=== PATIENT | female | born 1955 | race American Indian/Alaskan Native ===

== ENCOUNTER 2016-07-18 17:16 | Emergency (ER) | payer OTHER ==
--- NOTE | 2016-07-18 18:24 | Emergency Department Report ---
ED Shortness of Breath HPI - General Chief Complaint: Dyspnea/Respdistress Stated Complaint: SOB Time Seen by Provider: 07/18/16 18:12 Source: patient Mode of arrival: Ambulatory Limitations: No Limitations - History of Present Illness Initial Comments: 60-year-old female with history of hypertension, diabetes, CHF status post ICD placement presented today because of shortness of breath on exertion 1 week. Patient states otherwise been swelling more over this last week and she starting at more more short of breath. She has associated chest pain, palpitations, nausea, vomiting, diarrhea, abdominal pain. Has been taking Lasix 40 mg by mouth once a day as prescribed. Has been out of the hospital for over 2 years. She has a nonproductive cough. - Related Data Previous Rx's Medication Instructions Recorded Last Taken Type Digoxin [Lanoxin] 0.125 mg PO DAILY@1700 #30 tablet 09/10/13 Unknown Rx Furosemide [Lasix] 40 mg PO DAILY #30 tablet 09/10/13 Unknown Rx Losartan [Cozaar] 12.5 mg PO QDAY #30 tablet 09/10/13 Unknown Rx Metoprolol [Lopressor TAB] 25 mg PO BID #60 tablet 09/10/13 Unknown Rx Simvastatin [Zocor TAB] 20 mg PO QHS #30 tablet 09/10/13 Unknown Rx Spironolactone [Aldactone] 25 mg PO QDAY #30 tablet 09/10/13 Unknown Rx glyBURIDE [Diabeta] 5 mg PO DAILY #30 tablet 09/10/13 Unknown Rx Allergies Allergy/AdvReac Type Severity Reaction Status Date / Time lisinopril Allergy Persistent Verified 07/18/16 17:28 coughimg ED Review of Systems ROS: Stated complaint: SOB Other details as noted in HPI Comment: All other systems reviewed and negative Respiratory: cough, shortness of breath, SOB with exertion Cardiovascular: denies: chest pain, palpitations Gastrointestinal: denies: abdominal pain, vomiting Genitourinary: denies: urgency, dysuria Psychiatric: denies: anxiety ED Past Medical Hx - Past Medical History Hx Hypertension: Yes Hx Congestive Heart Failure: Yes Hx Diabetes: Yes Additional medical history: enlarged heart - Surgical History Hx Internal Defibrillator: Yes Additional Surgical History: partial hysterectomy - Social History Smoking Status: Never Smoker Substance Use Type: None - Medications Home Medications: Home Medications Medication Instructions Recorded Confirmed Last Taken Type Digoxin [Lanoxin] 0.125 mg PO DAILY@1700 #30 tablet 09/10/13 Unknown Rx Furosemide [Lasix] 40 mg PO DAILY #30 tablet 09/10/13 Unknown Rx Losartan [Cozaar] 12.5 mg PO QDAY #30 tablet 09/10/13 Unknown Rx Metoprolol [Lopressor TAB] 25 mg PO BID #60 tablet 09/10/13 Unknown Rx Simvastatin [Zocor TAB] 20 mg PO QHS #30 tablet 09/10/13 Unknown Rx Spironolactone [Aldactone] 25 mg PO QDAY #30 tablet 09/10/13 Unknown Rx glyBURIDE [Diabeta] 5 mg PO DAILY #30 tablet 09/10/13 Unknown Rx ED Physical Exam - General Limitations: No Limitations General appearance: alert, in no apparent distress - Head Head exam: Present: atraumatic - ENT ENT exam: Present: normal exam - Respiratory Respiratory exam: Present: other (mild crackles at bilateral lung bases, mild, mild respiratory distress, able to speak full sentences between breaths) - Cardiovascular Cardiovascular Exam: Present: normal rhythm, tachycardia - GI/Abdominal GI/Abdominal exam: Present: soft. Absent: distended, tenderness - Extremities Exam Extremities exam: Present: other (3+ pitting edema in bilateral lower legs going up to the knees) - Neurological Exam Neurological exam: Present: alert, oriented X3 - Psychiatric Psychiatric exam: Present: normal affect - Skin Skin exam: Present: intact ED Course Vital Signs 07/18/16 07/18/16 07/18/16 17:20 18:05 18:06 Temperature 98.3 F Pulse Rate 119 H Respiratory 24 Rate Blood Pressure 129/93 Blood Pressure [Right] O2 Sat by Pulse 98 100 99 Oximetry 07/18/16 07/18/16 07/18/16 18:07 18:08 18:10 Temperature Pulse Rate 108 H 109 H 106 H Respiratory 15 25 H 25 H Rate Blood Pressure 122/91 122/91 122/91 Blood Pressure [Right] O2 Sat by Pulse 98 100 98 Oximetry 07/18/16 07/18/16 07/18/16 18:12 18:14 18:15 Temperature Pulse Rate 107 H 109 H 112 H Respiratory 16 16 14 Rate Blood Pressure 122/91 122/91 131/96 Blood Pressure [Right] O2 Sat by Pulse 100 100 99 Oximetry 07/18/16 07/18/16 07/18/16 19:45 23:35 23:36 Temperature 98.3 F Pulse Rate 99 H 97 H Respiratory 20 16 16 Rate Blood Pressure Blood Pressure 119/90 126/88 [Right] O2 Sat by Pulse 99 98 98 Oximetry - Reevaluation(s) Reevaluation #1: 07/18/16 23:22 Patient reassessed and is feeling significantly better. Has no respiratory distress and lungs sound clear. Has urinated multiple times after receiving a dose of IV Lasix. Patient's vitals here show that she has a little bit tachycardic between 100-110, I looked through patient's medications and she is usually on metoprolol which she has not taken today. Splint to the patient my concern about tachycardia however this is likely due to beta kit withdrawal. Patient is well appearing and has a doctor's appointment on Sunday with her primary doctor. We'll discharge home with primary care follow-up. ED Medical Decision Making - Lab Data Result diagrams: 07/18/16 18:11 07/18/16 18:11 - Medical Decision Making EKG shows sinus tachycardia at 104 bpm, no ST-T changes, narrow QRS Labs, chest x-ray ordered Likely a CHF exacerbation Critical care attestation.: If time is entered above; I have spent that time in minutes in the direct care of this critically ill patient, excluding procedure time. ED Disposition Clinical Impression: CHF exacerbation Qualifiers: Congestive heart failure type: unspecified congestive heart failure type Qualified Code(s): I50.9 - Heart failure, unspecified Disposition: DISCHARGED TO HOME OR SELFCARE Is pt being admited?: No Does the pt Need Aspirin: No Condition: Stable Additional Instructions: Please follow up with your primary care doctor on your appointment on Sunday. Return to the emergency room if he had significant difficulty breathing, chest pain, palpitations or any new symptoms. Referrals: PRIMARY CARE, [Primary Care Provider] - 3-5 Days
[2016-07-18 18:30] LABS: Hematocrit 35.9 % (30.3-42.9); Hemoglobin 11.3 gm/dl (10.1-14.3); Mean Corpuscular HGB Conc 32 % (30-34); Mean Corpuscular Volume 71 fl (79-97); Platelet Count 261 K/mm3 (140-440); Red Blood Count 5.03 M/mm3 (3.65-5.03); Red Cell Distribution Width 15.1 % (13.2-15.2); White Blood Count 5.9 K/mm3 (4.5-11.0)
[2016-07-18 18:36] LABS: Mean Corpuscular Hemoglobin 23 pg (28-32)
[2016-07-18 18:53] LABS: Anion Gap 17 mmol/L; BUN/Creatinine Ratio 32.85; Blood Urea Nitrogen 23 mg/dL (7-17); Calcium 8.9 mg/dL (8.4-10.2); Carbon Dioxide 26 mmol/L (22-30); Chloride 101.3 mmol/L (98-107); Glucose 226 mg/dL (65-100); Potassium 4.2 mmol/L (3.6-5.0); Sodium 140 mmol/L (137-145)
[2016-07-18] MEDS ORDERED: LASIX IV ONE (20:49)
--- NOTE | 2016-07-18 22:28 | Admit Criteria Form ---
Admission Criteria Documentation: HEART FAILURE: COMMON COMPLICATIONS Clinical Indications for Inpatient Care (Place 'X' for any and all applicable criteria): Ongoing inpatient care may be indicated for heart failure with ANY ONE of the following (1)(2)(3)(4)(5): [ ]I. Ongoing need for care for primary condition requiring frequent therapy adjustments because of changes in cardiac function (eg, drug dosage changes for drugs that are renally metabolized) [ ]II. New-onset heart failure [ ]III. Heart failure with decreased urine output not responsive to attempts to optimize volume status [ ]IV. Acute cardiac ischemia causing or associated with failure [X ]V. Complications of heart failure, including ANY ONE of the following: [ ]a) Pericardial effusion [ ]b) Symptomatic pleural effusion [ ]c) O2 saturation <90% or PO2 < 60 mm Hg (8.0 kPa) on room air or require baseline supplemental O2 [ ]d) Tachypnea [ X]e) Dyspnea [ ]f) Syncope [ ]g) Change in mental status [ ]h) Acute renal insufficiency that is severe (reduction of more than 50% in estimated glomerular filtration rate from baseline) or progressive reduction of more than 25% in estimated glomerular filtration rate from baseline, with creatinine continuing to rise) [ ]i) Hemodynamic instability [ ]j) Anasarca [ ]k) Clinically significant metabolic abnormalities due to heart failure (eg, new-onset metabolic acidosis) Extended stay beyond goal length of stay for primary condition may be needed until ALL of the following are present(1)(3): [ ]a) Stable and effective diuretic regimen established (or patient on stable dialysis regimen if in chronic renal failure) [ ]b) Breathing comfortably at rest [ ]c) Saturation of arterial oxygen greater than 90% or at acceptable baseline [ ]d) Pulmonary edema absent or improved [ ]e) Hemodynamic stability [ ]f) Volume status acceptable on oral medication [ ]g) Peripheral or sacral edema absent or improved [ ]h) Renal function stable and manageable at a lower level of care [ ]i) Complications (eg, pleural effusion) resolved or manageable at a lower level of care [ ]j) Patient or caregiver has received written discharge instructions or educational material addressing activity level, diet, discharge medications, follow-up appointment, weight monitoring, and what to do if symptoms worsen The original [facility] content created by [employer] has been revised. The portions of the content which have been revised are identified through the use of italic text or in bold, and [facility] has neither reviewed nor approved the modified material.All other unmodified content is copyright [facility]. Please see references footnoted in the original [facility] edition 2016 Admission Criteria Met: Yes
[2016-07-18 23:10] LABS: Bilirubin,Urine NEG (Negative); Blood,Urine NEG (Negative); Ketones,Urine NEG (Negative); Leukocyte Esterase,Urine NEG (Negative); Mucus,Urine 2+ /HPF; Nitrite,Urine NEG (Negative)
[2016-07-18 23:36] VITALS: BP 126/88
--- NOTE | 2016-07-19 09:59 | XRay Report ---
AP CHEST: HISTORY: Shortness of breath. FINDINGS: [id number] cardiomegaly, mild pulmonary venous congestion and small bilateral pleural effusions are identified. A single lead pacemaker terminates in the right ventricle. No infiltrate or pneumothorax identified. IMPRESSION: Mild CHF. These findings have increased since 09/09/13 exam.
== END 2016-07-18 23:45 | disposition home or self-care (01) ==
LOC: ED 17:16
DX: I50.9 Heart failure, unspecified (principal); I10 Essential (primary) hypertension; E11.9 Type 2 diabetes mellitus without complications; Z90.711 Acquired absence of uterus with remaining cervical stump
CPT/HCPCS: 36415; 71010; 80048; 81001; 83880; 84443; 84484; 85027; 93005; 93010; 96374; 99284; J1940